=== PATIENT | male | born 1960 | race Caucasian/White ===

== ENCOUNTER → 2017-09-07 | Outpatient (CLI) | payer OTHER ==
[~2017-09-07] MED LIST: AMBIEN 5 MG TABL5 M1 PO; BACTROBAN CREAM30 G1 TOP; BUPROPION XL300 MG; CALCIUM 600 +1 EAC1 PO; CARISOPRODOL350 MG PO; CARVEDILOL25 MG PO; CYMBALTA30 MG PO; ELAVIL PO; EXELON PO; FISH OIL 1,001000 M2 PO; FOSINOPRIL SODI20 M1 PO; IMITREX100 MG PO; INVOKANA300 MG PO; JANUVIA100 MG PO; LIPITOR10 MG PO; LIVALO2 MG PO; MEDROLDOSEPACK PO; MELATONIN5 M1 PO; METANX CAPSULE1 EACH PO; METFORMIN HCL500 MG PO; METHYLPHENIDATE20 M4 PO; MILK THISTLE500 MG PO; NEURONTIN 300300 M1 PO; NEURONTIN800 MG PO; OMEGA-31000 M1 PO; OMEPRAZOLE 20 M20 M1 PO; OMEPRAZOLE20 M1 PO; PERCOCET 5-3251 EACH PO; PIOGLITAZONE15 MG; PROAIR HFA8.5 GM; PROVENTIL HFA6.7 G1 INH; PROVIGIL; REYATAZ100 MG PO; STRIBILD TABLE1 EACH PO; SUSTIVA600 MG PO; TRUVADA1 EAC1 PO; VALIUM5 MG PO; VICTOZA0.6 MG/0.1 SUBQ; VIRAMUNE PO; VITAMIN B-12500 MCG PO; VITAMIN C1000 MG PO; VITAMIN D PO; VITAMIN E400 UNIT PO; XIFAXAN550 M1 PO
== END ==
LOC: M.MRI 10:56
DX: S06.0X9S Concussion with loss of consciousness of unspecified duration, sequela (principal); G93.40 Encephalopathy, unspecified; R41.0 Disorientation, unspecified; J20.9 Acute bronchitis, unspecified; J06.9 Acute upper respiratory infection, unspecified; X58.XXXS Exposure to other specified factors, sequela